=== PATIENT | male | born 1975 | race Caucasian/White ===

== ENCOUNTER 2019-10-21 11:47 | Emergency (ER) | payer OTHER ==
--- NOTE | 2019-10-21 13:28 | EDM.PDOC ---
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 Denies fever, cough, chest pain. He works at [employer] and is concerned for COVID exposure. His roommate was tested and was negative yesterday. ROS: A 10-point review of systems, other than pertinent positives and negatives as stated per HPI, is otherwise negative PHYSICAL EXAM General: AOx4, GCS = 15, No distress HEENT: dry mucous membrane Neck: supple, no meningismus, no Kernig or Brudzinski Cardiac: S1S2 RRR Respiratory: CTAB, no crackles or rales, no wheezing Abdomen: Soft, nontender, no rebound or guarding, nondistended, no pulsatile mass. Back: nontender Musculoskeletal: NVI distally, no deformity Neuro: No focal deficits, CN 2 - 12 WNL. - Related Data Allergies Allergy/AdvReac Type Severity Reaction Status Date / Time No Known Allergies Allergy Verified 10/21/19 12:28 Home Meds: Home Meds . [No Known Home Meds] 10/21/19 [History] Past Medical History Cardiovascular History: Reports: None Respiratory History: Reports: Other (See Below) Other Respiratory History: valley fever Gastrointestinal History: Reports: None Genitourinary History: Reports: None Musculoskeletal History: Reports: None Neurological History: Reports: None Psychiatric History: Reports: None Endocrine/Metabolic History: Reports: None Hematologic History: Reports: None Immunologic History: Reports: None Oncologic (Cancer) History: Reports: None Dermatologic History: Reports: None - Infectious Disease History Infectious Disease History: Reports: None - Past Surgical History HEENT Surgical History: Reports: Oral Surgery Neurological Surgical History: Reports: Lumbar Spine Musculoskeletal Surgical History: Reports: Other (See Below) Other Musculoskeletal Surgeries/Procedures:: L ankle Social & Family History - Tobacco Use Smoking Status *Q: Current Every Day Smoker Years of Tobacco use: 26 Packs/Tins Daily: 0.5 - Recreational Drug Use Recreational Drug Use: No ED ROS GENERAL - Review of Systems Review Of Systems: Comprehensive ROS is negative, except as noted in HPI. ED EXAM, GENERAL - Physical Exam Exam: See Below (see dictation) EKG INTERPRETATION EKG Interpretation Comments: 81 Bpm, NSR, normal QRS interval, no STEMI. EKG and rhythm strip interpreted by me at 1330 Course - Vital Signs Last Recorded V/S: Last Vital Signs Temp 98.8 F 10/21/19 12:25 Pulse 92 10/21/19 12:25 Resp 16 10/21/19 12:25 BP 135/90 10/21/19 12:25 Pulse Ox 97 10/21/19 12:25 - Orders/Labs/Meds Orders: Active Orders 24 hr Category Date Time Status EKG 12 Lead [EKG Documentation Completion] [RC] STAT Care 10/21/19 13:14 Active Labs: Laboratory Tests 10/21/19 Range/Units 14:22 SARS Virus RNA (PCR) NEGATIVE (NEGATIVE) - Re-Assessments/Exams Free Text/Narrative Re-Assessment/Exam: 10/21/19 13:25 After treatments and a prolonged observation period in the ER, the patient improved clinically and is stable for discharge. I performed a repeat examination and the patient has not demonstrated any new abnormal findings. Patient exhibits normal vital signs and has exhibited a normal gait. I advised the patient to return to the ER for reevaluation if symptoms worsened, and to follow up with their PCP within 2-3 days. MEDICAL DECISION MAKING: I reviewed the patients past medical records, lab and radiographic findings. I discussed the case with the patient. My differential diagnosis included: COVID, PNA, bronchitis This patient was evaluated for the symptoms described in the history of present illness. He was evaluated in the context of the global COVID-19 pandemic, which necessitated consideration that the patient might be at risk for infection with the SARS-CoV-2 virus that causes COVID-19. Institutional protocols and algorithms that pertain to the evaluation of patients at risk for COVID-19 are in a state of rapid change based on information released by regulatory bodies including the CDC and federal and state organizations. These policies and algorithms were followed during the patient's care. I wore my mask and face shield, and gloves throughout my evaluation and care of this patient. I recommended home isolation. given home isolation instructions. Patient was in no respiratory distress, he was not hypoxic or retracting, he was speaking in full sentences and smiling, and otherwise well appearing. I instructed patient to return immediately for worsening symptoms, sob, chest pain, lightheadedness or other concerns. Patient voiced understanding and questions answered. I notified patient of incidental findings on their xray of his lung nodule, and need for follow-up with PMD and/or further work-up to monitor this or determine significance of finding. Pt voiced understanding and questions were answered. Departure - Departure Time of Disposition: 16:36 Disposition: Home, Self-Care 01 Condition: Good Clinical Impression: COVID-19 ruled out, Dyspnea, Pulmonary nodule - Discharge Information *PRESCRIPTION DRUG MONITORING PROGRAM REVIEWED*: Not Applicable *COPY OF PRESCRIPTION DRUG MONITORING REPORT IN PATIENT JAMES: Not Applicable Instructions: Shortness of Breath, Adult, [id number] Referrals: PCP,None [Primary Care Provider] - 1 Week Forms: ED Department Discharge Additional Instructions: The following information is given to patients seen in the emergency department who are being discharged to home. This information is to outline your options for follow-up care. We provide all patients seen in our emergency department with a follow-up referral. The need for follow-up, as well as the timing and circumstances, are variable depending upon the specifics of your emergency department visit. If you don't have a primary care physician on staff, we will provide you with a referral. We always advise you to contact your personal physician following an emergency department visit to inform them of the circumstance of the visit and for follow-up with them and/or the need for any referrals to a consulting specialist. The emergency department will also refer you to a specialist when appropriate. This referral assures that you have the opportunity for follow-up care with a specialist. All of these measure are taken in an effort to provide you with optimal care, which includes your follow-up. Under all circumstances we always encourage you to contact your private physician who remains a resource for coordinating your care. When calling for follow-up care, please make the office aware that this follow-up is from your recent emergency room visit. If for any reason you are refused follow-up, please contact the [facility] Emergency Department at and asked to speak to the emergency department charge nurse. Sepsis Event Note (ED) - Evaluation Sepsis Screening Result: No Definite Risk - Focused Exam Vital Signs: Vital Signs Temp Pulse Resp BP Pulse Ox 10/21/19 12:25 98.8 F 92 16 135/90 97 - My Orders Last 24 Hours: My Active Orders 10/21/19 13:14 EKG 12 Lead [EKG Documentation Completion] [RC] STAT - Assessment/Plan Last 24 Hours: My Active Orders 10/21/19 13:14 EKG 12 Lead [EKG Documentation Completion] [RC] STAT
--- NOTE | 2019-10-21 13:45 | CR ---
Chest: 2 views of the chest were obtained. Comparison: No previous chest imaging is available. Nodule identified within the left midlung measuring 1.6 cm. Lungs otherwise are clear. Heart size and mediastinum are normal. Bony structures are grossly intact. Impression: 1. Left midlung nodule. Uncertain if this is due to granuloma or represents other etiology. Noncontrast chest CT would be helpful to further evaluate. 2. Nothing acute is otherwise seen on 2 view chest x-ray. Diagnostic code #3 This report was dictated in MDT
== END 2019-10-21 16:50 | disposition home or self-care (01) ==
LOC: MW.ED 11:47
DX: R91.1 Solitary pulmonary nodule (principal); R06.00 Dyspnea, unspecified; Z20.828 Contact with and (suspected) exposure to other viral communicable diseases; F17.210 Nicotine dependence, cigarettes, uncomplicated; Z98.890 Other specified postprocedural states
CPT/HCPCS: 71046; 71046-26; 93005; 99282; 99285-25; U0002

== ENCOUNTER 2019-12-15 15:25 | Emergency (ER) | payer OTHER ==
--- NOTE | 2019-12-15 15:39 | EDM.PDOC ---
ED HPI GENERAL MEDICAL PROBLEM - General Chief Complaint: Lower Extremity Injury/Pain Stated Complaint: INJURED LEFT KNEE Time Seen by Provider: 12/15/19 15:38 Source of Information: Reports: Patient History Limitations: Reports: No Limitations - History of Present Illness INITIAL COMMENTS - FREE TEXT/NARRATIVE: HISTORY AND PHYSICAL: History of present illness: Patient is a 44-year-old male who presents to the emergency room with complaints of left posterior knee pain. He states while shopping he had abruptly stopped in the aisle twice. He describes the pain as a sharp "tendon type" discomfort to the back of his knee. He denies falling, trauma or any twisting type movements. He has been ambulatory although states it causes increased discomfort. He believes he may have tore or strained something. He denies any other extremity involvement. Denies any systemic complaints. Review of systems: As per history of present illness and below otherwise all systems reviewed and negative. Past medical history: As per history of present illness and as reviewed below otherwise noncontributory. Surgical history: As per history of present illness and as reviewed below otherwise noncontributory. Social history: See social history for further information Family history: As per history of present illness and as reviewed below otherwise noncontributory. Physical exam: General: Well developed and well nourished 44 year old male. Alert and orientated x 3. Nontoxic in appearance and in no acute distress. Vital signs are stable and have been reviewed by me. Nursing notes were reviewed. HEENT: Atraumatic, normocephalic, pupils equal and reactive bilaterally, negative for conjunctival pallor or scleral icterus, mucous membranes moist, TMs normal bilaterally, throat clear, neck supple, nontender, trachea midline. No drooling or trismus noted. No meningeal signs. No hot potato voice noted. Lungs: Clear to auscultation, breath sounds equal bilaterally, chest nontender. Normal work of breathing, no accessory muscles used. Heart: S1S2, regular rate and rhythm without overt murmur Abdomen: Soft, nondistended, nontender. Skin: Intact, warm, dry. No redness or soft tissue swelling. No lesions or rashes noted. Hematologic: No petechiae or purpra. Mucosa appropriate color and normal nail bed color and refill. Extremities: Discomfort with palpation behind the left knee. Able to fully extend and flex the affected extremity. Negative drawer test. No knee instability. He moves all extremities per self without difficulty or deficits, negative for cords or calf pain. +CMS. Strong pedal and pretibila pulse. +cap refill. Neurovascular unremarkable. Neuro: Awake, alert, oriented. Cranial nerves II through XII unremarkable. Cerebellum unremarkable. Motor and sensory unremarkable throughout. Exam nonfocal. Notes: X-ray shows no acute findings. Patient states he would like an MRI, we discussed that he needs to wait a few days post injury to help decrease swelling. He reports that the AR will order this for him. He has been appropriate for this charge. We discussed signs and symptoms that would prompt them to return to the Emergency Department. Medication, follow up and supportive care measures were reviewed and discussed. Voices understanding and is agreeable to plan of care. Denies any further questions or concerns at this time. Diagnostics: X-ray Therapeutics: Toradol IM, Crutches, Patellar Cut Out Prescription: Diclofenac Impression: Knee Strain, Left Plan: 1. Today your physical exam is concerning for sprain or ligament injury. Your x- ray is normal. If you continue to have pain, you may need further imaging. 2. Rest, ice, elevate the extremity as able. 3. We always encourage you to follow up with your primary care provider or recommended specialist in the next few days for re-evaluation and further care/management. If your symptoms should worsen, new symptoms develop or any of the signs and symptoms we discussed should arise please return to the emergency room or call 911 (if needed). Definitive disposition and diagnosis as appropriate pending reevaluation and review of above. Left knee Pain Score (Numeric/FACES): 10 - Related Data Allergies Allergy/AdvReac Type Severity Reaction Status Date / Time No Known Allergies Allergy Verified 12/15/19 15:35 Home Meds: Home Meds . [No Known Home Meds] 10/21/19 [History] Past Medical History Cardiovascular History: Reports: None Respiratory History: Reports: Other (See Below) Other Respiratory History: valley fever Gastrointestinal History: Reports: None Genitourinary History: Reports: None Musculoskeletal History: Reports: None Neurological History: Reports: None Psychiatric History: Reports: None Endocrine/Metabolic History: Reports: None Hematologic History: Reports: None Immunologic History: Reports: None Oncologic (Cancer) History: Reports: None Dermatologic History: Reports: None - Infectious Disease History Infectious Disease History: Reports: None - Past Surgical History HEENT Surgical History: Reports: Oral Surgery Neurological Surgical History: Reports: Lumbar Spine Musculoskeletal Surgical History: Reports: Other (See Below) Other Musculoskeletal Surgeries/Procedures:: L ankle Review of Systems - Review of Systems Review Of Systems: Comprehensive ROS is negative, except as noted in HPI. ED EXAM, GENERAL - Physical Exam Exam: See Below (See dictation) Course - Vital Signs Last Recorded V/S: Last Vital Signs Temp 97.3 F 12/15/19 15:36 Pulse 102 H 12/15/19 15:36 Resp 17 12/15/19 15:36 BP 134/99 H 12/15/19 15:36 Pulse Ox 98 12/15/19 15:36 - Orders/Labs/Meds Orders: Active Orders 24 hr Category Date Time Status DME for Discharge [COMM] Stat Oth 12/15/19 15:47 Ordered Meds: Medications Discontinued Medications Generic Name Dose Route Start Last Admin Trade Name Freq PRN Reason Stop Dose Admin Ketorolac Tromethamine 60 mg 12/15/19 15:42 12/15/19 16:03 Toradol IM 12/15/19 15:43 60 mg ONETIME ONE Administration Departure - Departure Time of Disposition: 16:22 Disposition: Home, Self-Care 01 Clinical Impression: Strain of left knee Qualifiers: Encounter type: initial encounter Qualified Code(s): S86.912A - Strain of unspecified muscle(s) and tendon(s) at lower leg level, left leg, initial encounter - Discharge Information Referrals: PCP,None [Primary Care Provider] - Forms: ED Department Discharge Additional Instructions: The following information is given to patients seen in the emergency department who are being discharged to home. This information is to outline your options for follow-up care. We provide all patients seen in our emergency department with a follow-up referral. The need for follow-up, as well as the timing and circumstances, are variable depending upon the specifics of your emergency department visit. If you don't have a primary care physician on staff, we will provide you with a referral. We always advise you to contact your personal physician following an emergency department visit to inform them of the circumstance of the visit and for follow-up with them and/or the need for any referrals to a consulting specialist. The emergency department will also refer you to a specialist when appropriate. This referral assures that you have the opportunity for follow-up care with a specialist. All of these measure are taken in an effort to provide you with optimal care, which includes your follow-up. Under all circumstances we always encourage you to contact your private physician who remains a resource for coordinating your care. When calling for follow-up care, please make the office aware that this follow-up is from your recent emergency room visit. If for any reason you are refused follow-up, please contact the [facility] Emergency Department at and asked to speak to the emergency department charge nurse. [facility] [address] [place] [id number] [facility] [place] [address] [place] [id number] Thank you for choosing the [facility] emergency department in [place] for your medical needs today. It was a pleasure caring for you. Today you were seen in the emergency department for knee pain. 1. Today your physical exam is concerning for sprain or ligament injury. Your x- ray is normal. If you continue to have pain, you may need further imaging. 2. Rest, ice, elevate the extremity as able. 3. We always encourage you to follow up with your primary care provider or recommended specialist in the next few days for re-evaluation and further care/management. If your symptoms should worsen, new symptoms develop or any of the signs and symptoms we discussed should arise please return to the emergency room or call 911 (if needed). Sepsis Event Note (ED) - Focused Exam Vital Signs: Vital Signs Temp Pulse Resp BP Pulse Ox 12/15/19 15:36 97.3 F 102 H 17 134/99 H 98 - My Orders Last 24 Hours: My Active Orders 12/15/19 15:47 DME for Discharge [COMM] Stat - Assessment/Plan Last 24 Hours: My Active Orders 12/15/19 15:47 DME for Discharge [COMM] Stat
[2019-12-15] MEDS ORDERED: Ketorolac 60 MG/2 ML SDV IM ONE (15:42)
--- NOTE | 2019-12-15 16:12 | CR ---
Left knee: AP, lateral and sunrise patellar views left knee were obtained. Comparison: No previous study. Medial and lateral joint compartments are maintained in height. No joint effusion is seen. Patellofemoral joint appears within normal limits. Impression: 1. No abnormality is appreciated on 3 view left knee exam. Diagnostic code #1 This report was dictated in MDT
== END 2019-12-15 16:42 | disposition home or self-care (01) ==
LOC: MW.ED 15:25
DX: S86.912A Strain of unspecified muscle(s) and tendon(s) at lower leg level, left leg, initial encounter (principal); X50.1XXA Overexertion from prolonged static or awkward postures, initial encounter
CPT/HCPCS: 73562; 96372; 99283; J1885

== ENCOUNTER 2020-07-05 14:54 | Emergency (ER) | payer OTHER ==
--- NOTE | 2020-07-05 16:14 | CR ---
Indication: Hip pain Technique: Three views Comparison: None Findings: Bones: Alignment is normal. No fractures or bone lesions. Joint spaces: Unremarkable. Soft tissues: Unremarkable. Dictated by Brody Paredes MD @ Jul 05 2020 4:09PM Signed by Dr. Brody Paredes @ Jul 05 2020 4:13PM
--- NOTE | 2020-07-05 16:44 | EDM.PDOC ---
ED HPI GENERAL MEDICAL PROBLEM - General Chief Complaint: Lower Extremity Injury/Pain Stated Complaint: RT HIP Time Seen by Provider: 07/05/20 15:04 Source of Information: Reports: Patient History Limitations: Reports: No Limitations - History of Present Illness INITIAL COMMENTS - FREE TEXT/NARRATIVE: Patient is a 45-year-old male who presents today for right hip pain. Patient states that he did not suffer any injuries or fall but has been having some knee pain he seen orthopedics for and recently started having pain in his right hip whenever he lifts his leg and with turns it and work. Patient denies any redness or rash to the area no fever chills no urinary symptoms no nausea vomiting abdominal pain. Patient still would ambulate has a irritation just to the right hip. right hip Pain Score (Numeric/FACES): 8 - Related Data Allergies Allergy/AdvReac Type Severity Reaction Status Date / Time No Known Allergies Allergy Verified 07/05/20 15:15 Home Meds: Home Meds . [No Known Home Meds] 07/05/20 [History] Past Medical History Cardiovascular History: Reports: None Respiratory History: Reports: Other (See Below) Other Respiratory History: valley fever Gastrointestinal History: Reports: None Genitourinary History: Reports: None Musculoskeletal History: Reports: None, Back Pain, Chronic Neurological History: Reports: None Psychiatric History: Reports: None Endocrine/Metabolic History: Reports: None Hematologic History: Reports: None Immunologic History: Reports: None Oncologic (Cancer) History: Reports: None Dermatologic History: Reports: None - Infectious Disease History Infectious Disease History: Reports: Chicken Pox - Past Surgical History HEENT Surgical History: Reports: Oral Surgery Neurological Surgical History: Reports: Lumbar Spine Musculoskeletal Surgical History: Reports: Other (See Below) Other Musculoskeletal Surgeries/Procedures:: L ankle, knee pain, laser back surgery Social & Family History - Family History Family Medical History: No Pertinent Family History - Recreational Drug Use Recreational Drug Use: No Review of Systems - Review of Systems Review Of Systems: See Below Constitutional: Reports: No Symptoms Eyes: Reports: No Symptoms Ears: Reports: No Symptoms Nose: Reports: No Symptoms Mouth/Throat: Reports: No Symptoms Respiratory: Reports: No Symptoms Cardiovascular: Reports: No Symptoms GI/Abdominal: Reports: No Symptoms Genitourinary: Reports: No Symptoms Musculoskeletal: Reports: Leg Pain Skin: Reports: No Symptoms Neurological: Reports: No Symptoms Psychiatric: Reports: No Symptoms ED EXAM, GENERAL - Physical Exam Exam: See Below Exam Limited By: No Limitations General Appearance: Alert, WD/WN Eye Exam: Bilateral Eye: EOMI, PERRL Respiratory/Chest: No Respiratory Distress Cardiovascular: Normal Peripheral Pulses, Regular Rate, Rhythm Peripheral Pulses: 2+: Popliteal (L), Popliteal (R) GI/Abdominal: Normal Bowel Sounds, Soft, Non-Tender Extremities: Normal Inspection, Normal Range of Motion (pain with extrenal rotation ) Neurological: Alert, Oriented, Normal Cognition, Normal Gait Course - Vital Signs Last Recorded V/S: Last Vital Signs Temp 96.5 F L 07/05/20 15:10 Pulse 86 07/05/20 15:10 Resp 16 07/05/20 15:10 BP 124/91 H 07/05/20 15:10 Pulse Ox 96 07/05/20 15:10 - Re-Assessments/Exams Free Text/Narrative Re-Assessment/Exam: 07/05/20 16:45 Pain is improved and x-ray discharge not show any fracture arthritis. Patient will be discharged and has appointment already with orthopedic surgery. Departure - Departure Time of Disposition: 16:45 Disposition: Home, Self-Care 01 Condition: Good Clinical Impression: Hip pain - Discharge Information *PRESCRIPTION DRUG MONITORING PROGRAM REVIEWED*: Not Applicable *COPY OF PRESCRIPTION DRUG MONITORING REPORT IN PATIENT JAMES: Not Applicable Instructions: Hip Pain Referrals: Aníbal Bianchi DOSIMETRIST [Primary Care Provider] - Forms: ED Department Discharge Additional Instructions: The following information is given to patients seen in the emergency department who are being discharged to home. This information is to outline your options for follow-up care. We provide all patients seen in our emergency department wit h a follow-up referral. The need for follow-up, as well as the timing and circumstances, are variable depending upon the specifics of your emergency department visit. If you don't have a primary care physician on staff, we will provide you with a referral. We always advise you to contact your personal physician following an emergency department visit to inform them of the circumstance of the visit and for follow-up with them and/or the need for any referrals to a consulting specialist. The emergency department will also refer you to a specialist when appropriate. This referral assures that you have the opportunity for follow-up care with a specialist. All of these measure are taken in an effort to provide you with optimal care, which includes your follow-up. Under all circumstances we always encourage you to contact your private physician who remains a resource for coordinating your care. When calling for follow-up care, please make the office aware that this follow-up is from your recent emergency room visit. If for any reason you are refused follow-up, please contact the [facility] Emergency Department at and asked to speak to the emergency department charge nurse. Please follow up with your primary care physician. If you do not have a primary care physician, see below: [facility] Professional [address], [address] [place] [address] Continue to follow-up with your current orthopedic schedule appointment. If you have any increased pain or difficulty walking please return to the ED. Sepsis Event Note (ED) - Evaluation Sepsis Screening Result: No Definite Risk - Focused Exam Vital Signs: Vital Signs Temp Pulse Resp BP Pulse Ox 07/05/20 15:10 96.5 F L 86 16 124/91 H 96
== END 2020-07-05 17:00 | disposition home or self-care (01) ==
LOC: MW.ED 14:54
DX: M25.551 Pain in right hip (principal)
CPT/HCPCS: 73502-26-RT; 73502-RT; 99282; 99283

== ENCOUNTER 2020-10-07 22:58 | Emergency (ER) | payer OTHER ==
--- NOTE | 2020-10-07 23:03 | EDM.PDOC ---
ED HPI GENERAL MEDICAL PROBLEM - General Chief Complaint: Lower Extremity Injury/Pain Stated Complaint: RT KNEE SWELLING Time Seen by Provider: 10/07/20 22:58 Source of Information: Reports: Patient History Limitations: Reports: No Limitations - History of Present Illness INITIAL COMMENTS - FREE TEXT/NARRATIVE: 45M PMHx arthritis presents for atraumatic pain and swelling of R knee x2-3 days. Does not recall any injury or falls. Pain is in diffuse knee worse in suprapatellar area. No redness or warmth of joint noted by patient. No fevers, nausea, vomiting. No h/o gout. Has struggled with b/l knee problems in past and did see an orthopedist in the past. right knee Pain Score (Numeric/FACES): 10 - Related Data Allergies Allergy/AdvReac Type Severity Reaction Status Date / Time No Known Allergies Allergy Verified 10/07/20 23:06 Home Meds: Home Meds Acetaminophen/oxyCODONE [Percocet 325-5 MG] 1 each PO Q4H PRN #18 tab 10/08/20 [Rx] Ibuprofen [Motrin] 600 mg PO Q6H PRN #20 tab 10/08/20 [Rx] Past Medical History Cardiovascular History: Reports: None Respiratory History: Reports: Other (See Below) Other Respiratory History: valley fever Gastrointestinal History: Reports: None Genitourinary History: Reports: None Musculoskeletal History: Reports: None, Back Pain, Chronic Neurological History: Reports: None Psychiatric History: Reports: None Endocrine/Metabolic History: Reports: None Hematologic History: Reports: None Immunologic History: Reports: None Oncologic (Cancer) History: Reports: None Dermatologic History: Reports: None - Infectious Disease History Infectious Disease History: Reports: Chicken Pox - Past Surgical History HEENT Surgical History: Reports: Oral Surgery Neurological Surgical History: Reports: Lumbar Spine Musculoskeletal Surgical History: Reports: Other (See Below) Other Musculoskeletal Surgeries/Procedures:: L ankle, knee pain, laser back surgery Social & Family History - Family History Family Medical History: No Pertinent Family History Review of Systems - Review of Systems Review Of Systems: Comprehensive ROS is negative, except as noted in HPI. ED EXAM, GENERAL - Physical Exam Exam: See Below Exam Limited By: No Limitations General Appearance: Alert, WD/WN, No Apparent Distress Ears: Hearing Grossly Normal Throat/Mouth: Normal Voice, No Airway Compromise Head: Atraumatic, Normocephalic Respiratory/Chest: No Respiratory Distress, No Accessory Muscle Use Cardiovascular: Normal Peripheral Pulses Extremities: Other (mild suprapatellar swelling and TTP of R knee, no joint line TTP, no palpable effusion, pain with passive and active ROM of the knee) Neurological: Alert, Normal Cognition Psychiatric: Normal Affect, Normal Mood Skin Exam: Warm, Dry, Intact, Normal Color Course - Vital Signs Last Recorded V/S: Last Vital Signs Temp 96.8 F L 10/07/20 23:00 Pulse 91 10/07/20 23:00 Resp 18 10/07/20 23:00 BP 137/93 H 10/07/20 23:00 Pulse Ox 97 10/07/20 23:00 - Orders/Labs/Meds Meds: Medications Discontinued Medications Generic Name Dose Route Start Last Admin Trade Name Freq PRN Reason Stop Dose Admin Ketorolac Tromethamine 30 mg 10/07/20 23:33 10/08/20 00:00 Ketorolac 30 Mg/Ml Sdv IM 10/07/20 23:34 30 mg ONETIME ONE Administration Oxycodone/Acetaminophen 2 tab 10/07/20 23:33 10/07/20 23:59 Acetaminophen/Oxycodone 325-5 Mg Tab PO 10/07/20 23:34 2 tab ONETIME ONE Administration - Re-Assessments/Exams Free Text/Narrative Re-Assessment/Exam: 10/07/20 23:37 Will treat pain with toradol and percoct; will get XR imaging of the knee 10/08/20 00:05 X-ray imaging is normal. Will discharge patient with short course of analgesia and recommend follow-up with orthopedics for further assessment. Departure - Departure Time of Disposition: 00:05 Disposition: Home, Self-Care 01 Condition: Good Clinical Impression: Knee pain, right Qualifiers: Chronicity: acute Qualified Code(s): M25.561 - Pain in right knee - Discharge Information Prescriptions: Ibuprofen [Motrin] 600 mg PO Q6H PRN #20 tab PRN Reason: Pain Acetaminophen/oxyCODONE [Percocet 325-5 MG] 1 each PO Q4H PRN #18 tab PRN Reason: Pain Instructions: Acute Knee Pain, Adult Referrals: Aníbal Bianchi CODE INSPECTOR [Primary Care Provider] - Forms: ED Department Discharge Additional Instructions: Your x-ray was normal however you may need additional imaging to elucidate the etiology of your pain. I would recommend following up with orthopedics. Information is provided below and you are also placed in a orthopedic follow-up list. I have sent 2 different pain medications to your pharmacy. One is high- dose Motrin that you can take every 6 hours. The other 1 is Percocet which should just be taken as needed and can be habit-forming. [facility] [address] [place] [address], [address] [place] [address] The following information is given to patients seen in the emergency department who are being discharged to home. This information is to outline your options for follow-up care. We provide all patients seen in our emergency department with a follow-up referral. The need for follow-up, as well as the timing and circumstances, are variable depending upon the specifics of your emergency department visit. If you don't have a primary care physician on staff, we will provide you with a referral. We always advise you to contact your personal physician following an emergency department visit to inform them of the circumstance of the visit and for follow-up with them and/or the need for any referrals to a consulting specialist. The emergency department will also refer you to a specialist when appropriate. This referral assures that you have the opportunity for follow-up care with a specialist. All of these measure are taken in an effort to provide you with optimal care, which includes your follow-up. Under all circumstances we always encourage you to contact your private phys ician who remains a resource for coordinating your care. When calling for follow-up care, please make the office aware that this follow-up is from your recent emergency room visit. If for any reason you are refused follow-up, please contact the [facility] Emergency Department at and asked to speak to the emergency department charge nurse. Please follow up with your primary care physician. If you do not have a primary care physician, see below: [facility] [address], [place] [address] [facility] [address] [place] [address] [facility] [address] [place] [id number] Sepsis Event Note (ED) - Focused Exam Vital Signs: Vital Signs Temp Pulse Resp BP Pulse Ox 10/07/20 23:00 96.8 F L 91 18 137/93 H 97
[2020-10-07] MEDS ORDERED: Acetaminophen/oxyCODONE 325-5 MG Tab PO ONE (23:33)
[2020-10-07] MEDS ORDERED: Ketorolac 30 MG/ML SDV IM ONE (23:33)
--- NOTE | 2020-10-08 00:04 | CR ---
INDICATION: Atraumatic knee pain TECHNIQUE: Knee radiograph 3 views right COMPARISON: 04/10/2020 FINDINGS: Bone: No acute fractures or aggressive bone lesions are identified. Joint: The joint spaces of the medial, lateral, and patellofemoral compartments are unremarkable. No significant knee effusion is seen. Soft tissue: Unremarkable. No radiopaque foreign bodies are seen. IMPRESSION: 1. No acute osseous injuries or abnormalities are noted. Dictated by: Alen Mace MD @ 10/08/2020 00:03:37 (Electronically Signed)
== END 2020-10-08 00:20 | disposition home or self-care (01) ==
LOC: MW.ED 22:58
DX: M25.561 Pain in right knee (principal)
CPT/HCPCS: 73562; 96372; 99283; A9270; J1885

== ENCOUNTER 2021-04-21 10:43 | Emergency (ER) | payer OTHER ==
[2021-04-21] MEDS ORDERED: Dexamethasone 4 MG Tab PO STA (11:52)
[2021-04-21] MEDS ORDERED: Amoxicillin/Clavulanate K 875-125 MG Tab PO ONE ×2 (11:53)
--- NOTE | 2021-04-21 11:57 | EDM.PDOC ---
ED HPI GENERAL MEDICAL PROBLEM - General Chief Complaint: ENT Problem Stated Complaint: SWOLLEN FACE Time Seen by Provider: 04/21/21 11:26 - History of Present Illness INITIAL COMMENTS - FREE TEXT/NARRATIVE: CHIEF COMPLAINT(S): Facial swelling and pain HISTORY OF PRESENT ILLNESS: This is a 45-year-old man and without any significant past medical history who comes to the emergency department with a chief complaint of facial swelling. The patient states that starting this evening he started to notice that his right upper cheek was swollen. He currently denies any pain and states this is never happened before. He denies any blurry vision, eye drainage, nasal drainage, nasal pain, sinus congestion. He denies any dental pain but states he has not seen a dentist in quite some time. He denies any sore throat, trouble breathing. He denies any drooling, stridor or trismus. He denies any neck pain or stiffness. He denies any injury to the face. He denies any redness, warmth or fevers or chills. REVIEW OF SYSTEMS: Constitutional: Denies fever, chills. Eyes: Denies eye pain Ears, Nose, Mouth, & Throat: Denies earache, sore throat, runny nose Cardiovascular: Denies chest pain Respiratory: Denies shortness of breath Gastrointestinal: Denies Nausea, vomiting, diarrhea, hematochezia. Genitourinary: Denies hematuria Skin: Positive for right-sided facial swelling MSK: Denies joint pain Neurological: Denies blurred vision, numbness, tingling, weakness, double vision Psychiatric: Denies depression PAST MEDICAL HISTORY: As per history of present illness and as reviewed below otherwise noncontributory. SURGICAL HISTORY: As per history of present illness and as reviewed below otherwise noncontributory. SOCIAL HISTORY: As per history of present illness and as reviewed below otherwise noncontributory. FAMILY HISTORY: As per history of present illness and as reviewed below otherwise noncontributory. EXAMINATION OF ORGAN SYSTEMS/BODY AREAS: Constitutional: Blood pressure was 123/84, heart rate 92, respiratory rate 18 with an oxygen saturation 95% on room air. Temperature 36.1 General: Well-appearing man who is in no acute distress Psychiatric: Appropriate mood and affect. Eyes: No scleral icterus or conjunctival erythema pupils are equal round reactive to light. Extraocular movements intact. No nystagmus noted. ENMT: Moist mucous membranes. No pharyngeal erythema nasal turbinates clear without any drainage. Bilateral tympanic membranes without any bulging or erythema. There is evidence of dental carry on the upper jaw on the right. There is no evidence of periapical abscess. No gum erythema. No stridor, drooling, trismus. No posterior auricular swelling. Cardiovascular: Regular, rate, and rhythm. No gallops, murmurs, or rubs. Respiratory: Lungs clear to auscultation bilaterally. No wheezes, rales, or rhonchi. Musculoskeletal: Normal range of motion. Skin: No lesions or abrasions. Neurological: Alert, GCS 15 MEDICAL DECISION MAKING AND COURSE IN THE ED WITH INTERPRETATION/REVIEW OF DIAGNOSTIC STUDIES: This is a 45-year-old man without any significant past medical history who comes to the emergency department with right-sided facial swelling with evidence of a dental carry. At this time I do believe this is secondary to dental caries/abscess. We will provide the patient with Augmentin here in the emergency department to provide him with steroids to help with the swelling. At this time I did encourage the patient to follow-up with a dentist and encouraged him to take Augmentin as prescribed. He was given strict return precautions. The patient was amenable to discharge and had no further questions DISPOSITION: The patient was discharged home in stable condition. The patient will follow up with dentist this week CONDITION: Fair PROCEDURES: None FINAL IMPRESSION(S)/DIAGNOSES: 1. Acute right-sided facial swelling secondary to dental caries versus dental abscess Cyrus Ovalles M.D. right side of face Pain Score (Numeric/FACES): 5 - Related Data Allergies Allergy/AdvReac Type Severity Reaction Status Date / Time No Known Allergies Allergy Verified 04/21/21 11:26 Home Meds: Home Meds Ibuprofen [Motrin] 600 mg PO Q6H PRN #20 tab 10/08/20 [Rx] Amoxicillin/Potassium Clav [Amox Tr-K Clv 875-125 mg Tab] 1 each PO BID #14 t ablet 04/21/21 [Rx] Celecoxib [CeleBREX] mg PO DAILY 04/21/21 [History] Past Medical History HEENT History: Reports: None Cardiovascular History: Reports: None Respiratory History: Reports: None Other Respiratory History: valley fever Gastrointestinal History: Reports: None Genitourinary History: Reports: None Musculoskeletal History: Reports: Back Pain, Chronic Neurological History: Reports: None Psychiatric History: Reports: None Endocrine/Metabolic History: Reports: None 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 Hematologic History: Reports: None Immunologic History: Reports: None Oncologic (Cancer) History: Reports: None Dermatologic History: Reports: None - Infectious Disease History Infectious Disease History: Reports: Chicken Pox, Other (See Below) Other Infectious Disease History: Valley Fever - Past Surgical History HEENT Surgical History: Reports: Oral Surgery Neurological Surgical History: Reports: Lumbar Spine Musculoskeletal Surgical History: Reports: Other (See Below) Other Musculoskeletal Surgeries/Procedures:: L ankle, knee pain, laser back surgery Social & Family History - Family History Family Medical History: No Pertinent Family History - Tobacco Use Tobacco Use Status *Q: Current Every Day Tobacco User Years of Tobacco use: 20 Packs/Tins Daily: 0.5 - Caffeine Use Caffeine Use: Reports: Coffee, Energy Drinks - Recreational Drug Use Recreational Drug Use: No ED ROS GENERAL - Review of Systems Review Of Systems: See Below ED EXAM, GENERAL - Physical Exam Exam: See Below Course - Vital Signs Last Recorded V/S: Last Vital Signs Temp 36.1 C 04/21/21 11:27 Pulse 89 04/21/21 12:07 Resp 18 04/21/21 12:07 BP 117/83 04/21/21 12:07 Pulse Ox 94 L 04/21/21 12:07 - Orders/Labs/Meds Meds: Medications Discontinued Medications Generic Name Dose Route Start Last Admin Trade Name Stephanq PRN Reason Stop Dose Admin Amoxicillin/Clavulanate Potassium 1 tab 04/21/21 11:53 04/21/21 12:04 Amoxicillin/Clavulanate K 875-125 Mg Tab PO 04/21/21 11:54 1 tab ONETIME ONE Administration Amoxicillin/Clavulanate Potassium 1 tab 04/21/21 11:53 04/21/21 12:04 Amoxicillin/Clavulanate K 875-125 Mg Tab PO 04/21/21 11:54 1 tab ONETIME ONE Administration Dexamethasone 8 mg 04/21/21 11:52 04/21/21 12:04 Dexamethasone 4 Mg Tab PO 04/21/21 11:53 8 mg ONETIME STA Administration Departure - Departure Time of Disposition: 11:55 Disposition: Home, Self-Care 01 Condition: Fair Clinical Impression: Right facial swelling - Discharge Information *PRESCRIPTION DRUG MONITORING PROGRAM REVIEWED*: No *COPY OF PRESCRIPTION DRUG MONITORING REPORT IN PATIENT JAMES: No Prescriptions: Amoxicillin/Potassium Clav [Amox Tr-K Clv 875-125 mg Tab] 1 each PO BID #14 tablet Instructions: Dental Caries, Adult, [id number] Referrals: Aníbal Bianchi, CHEMICAL TREATMENT OPERATOR [Primary Care Provider] - Forms: ED Department Discharge Additional Instructions: You were evaluated today on an emergent basis. At this time I do believe the swelling on the right side of your face is likely due to the cavity that you have on the right upper part of your mouth. However given the swelling and tenderness we will start you on an antibiotic. We recommend Augmentin twice a day for the next 7 days. Please sleep with your head elevated. It is important that you return to the emergency department if you have worsening swelling, pain when you move your eyes, drooling, inability to open your mouth or trouble swallowing. Please follow-up with dentistry within 7 to 10 days [facility] [address] [place] [address] [place] [address] The patient is informed of any results of their evaluation and diagnostic workup and all questions are answered. They are given discharge instructions and return precautions. The patient is stable for discharge. The patient states they understand and agree with the plan and that they will return if their symptoms get worse or if they have any new concerns. The following information is given to patients seen in the emergency department who are being discharged to home. This information is to outline your options for follow-up care. We provide all patients seen in our emergency department with a follow-up referral. The need for follow-up, as well as the timing and circumstances, are variable depending upon the specifics of your emergency department visit. If you don't have a primary care physician on staff, we will provide you with a referral. We always advise you to contact your personal physician following an emergency department visit to inform them of the circumstance of the visit and for follow-up with them and/or the need for any referrals to a consulting specialist. The emergency department will also refer you to a specialist when appropriate. This referral assures that you have the opportunity for follow-up care with a specialist. All of these measure are taken in an effort to provide you with optimal care, which includes your follow-up. Under all circumstances we always encourage you to contact your private physician who remains a resource for coordinating your care. When calling for follow-up care, please make the office aware that this follow-up is from your recent emergency room visit. If for any reason you are refused follow-up, please contact the [facility] Emergency Department at and asked to speak to the emergency department charge nurse. Sepsis Event Note (ED) - Evaluation Sepsis Screening Result: No Definite Risk
== END 2021-04-21 12:07 | disposition home or self-care (01) ==
LOC: MW.ED 10:43
DX: R22.0 Localized swelling, mass and lump, head (principal); Z72.0 Tobacco use
CPT/HCPCS: 99283; A9270; J8540